=== PATIENT | female | born 2000 | race Hispanic/Latino ===

== ENCOUNTER 2021-12-14 09:27 | Emergency (ER) | payer OTHER ==
[~2021-12-14] VITALS: Ht 157.5 cm; Wt 79.4 kg
[2021-12-14] MEDS ORDERED: IBUPROFEN 600 MG TAB PO STA (10:20)
[2021-12-14] MEDS ORDERED: IBUPROFEN 600 MG TAB ONE (10:59)
[2021-12-14] MEDS ORDERED: NAPROSYN500 MG PO (11:02)
== END 2021-12-14 11:24 | disposition home or self-care (01) ==
LOC: FSED 09:48
DX: M25.572 Pain in left ankle and joints of left foot (principal); S93.492A Sprain of other ligament of left ankle, initial encounter; X50.1XXA Overexertion from prolonged static or awkward postures, initial encounter; Y93.01 Activity, walking, marching and hiking; Y92.89 Other specified places as the place of occurrence of the external cause
CPT/HCPCS: 81025; 99284